=== PATIENT | female | born 1960 | race Caucasian/White ===

== ENCOUNTER 2019-03-07 21:32 | Emergency (ER) | payer MEDICAID, MEDICARE ==
[~2019-03-07] VITALS: Ht 160 cm; Wt 60.0 kg
[~2019-03-07 21:32] MED LIST: METO100T5; TRAZ50TA66
--- NOTE | 2019-03-07 22:16 | NUR ---
PT. TO ROOM FROM LOBBY.
[2019-03-07] MEDS ORDERED: ONDANSETRON 2MG/ML, 2ML IVPush ONE (22:30)
[2019-03-07] MEDS ORDERED: ONDANSETRON 2MG/ML, 2ML ONE (22:38)
[2019-03-07] MEDS ORDERED: MORPHINE SULFATE 4 MG/ML, 1ML ONE ×2 (22:38→23:11)
[2019-03-07] MEDS: MORPHINE SULFATE 4 MG/ML, 1ML IVPush PRN ×2 (22:41→23:13)
--- NOTE | 2019-03-07 22:44 | NUR ---
IV ESTABLISHED. PT. MEDICATED PER MAR. BLOOD DRAWN. PT. AWARE OF NEED FOR UA; UNABLE TO PROVIDE AT THIS TIME.
[2019-03-07 22:47] LABS: BASOPHILS # (AUTO) 0.03 x10^3/uL (0-0.1); BASOPHILS % (AUTO) 0 % (0-1); EOSINOPHILS % (AUTO) 0 % (1-7); LYMPHOCYTES # (AUTO) 0.94 x10^3/uL (1-3.4); LYMPHOCYTES % (AUTO) 10 % (22-44); MD NO; MEAN CORPUSCULAR HEMOGLOBIN 32.7 pg (27.0-34.8); MEAN CORPUSCULAR HGB CONC 33.5 g/dL (32.4-35.8); MEAN CORPUSCULAR VOLUME 97.7 fL (80-100); MEAN PLATELET VOLUME 7.2 fL (7.4-10.4); MONOCYTES # (AUTO) 0.17 x10^3/uL (0.2-0.8); MONOCYTES % (AUTO) 2 % (2-9); NEUTROPHILS # (AUTO) 7.96 x10^3/uL (1.8-6.8); NEUTROPHILS % (AUTO) 88 % (42-75); PLATELET COUNT 414 x10^3/uL (130-400); RED BLOOD COUNT 4.05 x10^6/uL (3.82-5.3); RED CELL DISTRIBUTION WIDTH 14.3 % (9.6-15.2)
[2019-03-07 22:55] LABS: ALANINE AMINOTRANSFERASE 59 U/L (12-78); ALBUMIN 4.5 g/dL (3.4-5.0); ANION GAP 20 mmol/L (5-15); CALCIUM 9.3 mg/dL (8.5-10.1); CHLORIDE 98 mmol/L (98-107); CREATININE 0.92 mg/dL (0.55-1.02)
[2019-03-07 22:57] LABS: ALKALINE PHOSPHATASE 154 U/L (45-117); BILIRUBIN,TOTAL 0.7 mg/dL (0.2-1.0); TOTAL PROTEIN 9.6 g/dL (6.4-8.2)
--- NOTE | 2019-03-07 23:03 | NUR ---
CLEAN CATCH INSTRUCTIONS GIVEN; BS COMMODE AT BS PT. PROVIDING SAMPLE NOW.
--- NOTE | 2019-03-07 23:14 | NUR ---
PT. MEDICATED PER NOV FOR CONTINUED 05/25 ABD PAIN. PT. MOANING AND GROANING IN PAIN. URINE SENT TO LAB.
[2019-03-07 23:21] LABS: MICROSCOPIC AUTO
[2019-03-07 23:26] LABS: CULTURE INDICATED? NO
[2019-03-07] MEDS ORDERED: LORazepam 2 MG/ML, 1ML IVPush ONE (23:30)
[2019-03-07] MEDS ORDERED: PROMETHAZINE 25 MG/ML, 1ML IM ONE (23:30)
[2019-03-07] MEDS ORDERED: PROMETHAZINE 25 MG/ML, 1ML ONE (23:31)
[2019-03-07] MEDS ORDERED: LORazepam 2 MG/ML, 1ML ONE (23:31)
[2019-03-08 00:14] VITALS: BP 167/99
== END 2019-03-08 00:16 | disposition home or self-care (01) ==
LOC: ED 23:20
DX: A09 Infectious gastroenteritis and colitis, unspecified (principal); F10.129 Alcohol abuse with intoxication, unspecified; F41.9 Anxiety disorder, unspecified
CPT/HCPCS: 36415; 80053; 80307; 81001; 83690; 85025; 96372; 96374; 96375; 96376; 99283; J2060; J2270; J2405; J2550